=== PATIENT | male | born 1970 | race Caucasian/White ===

== ENCOUNTER → 2019-07-05 08:06 | Outpatient (CLI) | payer OTHER ==
--- NOTE | ~2019-07-05 | ST ---
PATIENT:EDNA THOMAS MEDICAL RECORD: [id number] SEX: M LOCATION:[facility] ORDER #: ADMISSION DATE: 07/05/19 AGE OF PATIENT: 49 REFERRING PHYSICIAN: INTERPRETING PHYSICIAN: GREG PARIKH MD DATE OF SERVICE: 07/05/2019 PROCEDURE: Nuclear stress test. INDICATION: Angina, shortness of breath, hypertension. TECHNIQUE: He was exercised on standard Mac protocol for 8 minutes and 45 seconds achieving 85% max target heart rate response with 33 mCi of sestamibi injected at peak stress, 11 mCi used previously for rest images. FINDINGS: Gated SPECT reveals a preserved ejection fraction at 64% with good wall motioning and thickening and brightening throughout all segments. SPECT imaging Cardiolite was used myocardial perfusion agent. There is reversible ischemia inferiorly, anteriorly and apically. This includes the basal, mid, apical anterior segments; basal, mid, apical inferior segments as well as the apex itself. The degree if reversibility is mild. The amount of myocardium involved is large. OVERALL IMPRESSION: This is a high risk abnormal nuclear stress test. Reversible ischemia inferiorly and anteriorly and apically suggestive of hemodynamically significant multivessel coronary artery disease. TRANSINT:[id number] Voice Confirmation ID: [id number] DOCUMENT ID: [id number] GREG PARIKH MD CC: [id number] DICTATION DATE: 07/05/19 1705 TAPE WEAVER: 07/06/19 1155 DEP CLI 07/05/19 [place] [id number] [place] [id number]
--- NOTE | ~2019-07-05 | EC ---
PATIENT:EDNA THOMAS DATE OF SERVICE: 07/05/19 SEX: M MEDICAL RECORD: [id number] DATE OF : 66 LOCATION:[facility] AGE OF PATIENT: 49 ADMISSION DATE: 07/05/19 REFERRING PHYSICIAN: INTERPRETING PHYSICIAN: GREG LEZAMA MD ECHOCARDIOGRAM REPORT ECHO CHARGES 4 ECHO COMPLETE Date: 07/05/19 CLINICAL DIAGNOSIS: HTN/ANGINA/DYSPNEA ON EXERTION ECHOCARDIOGRAPHIC MEASUREMENTS (adult normal given) AC root (d.<3.7cm) 3.1 cm LV Septum d (<1.2 cm> 1.6 cm Valve Excursion 1.8 cm LV Septum (systole) 1.6 cm Left Atria (s.<4.0cm> 3.9 cm LVPW d(<1.2cm) 1.6 cm RV (d.<2.3cm) 3.7 cm LVPW (sytole) 2.1 cm LV diastole(<5.6CM) 5.1 cm MV E-F(>70mm/sec) cm LV systole 2.9 cm LVOT Diameter 2.0 cm MV exc.(>10mm) 1.5 cm Est.ejection fraction (50-75%) % DOPPLER: LVIT cm/sec A 46.0 cm/sec E 70.0 cm/sec LA cm/sec RVSP 18 mmHg LVOT 88 cm/sec AOP1/2T m/s Asc. Ao 112 cm/sec RVOT 89 cm/sec RA cm/sec PA 172 cm/sec AV Gradient Peak 5.01 mmHg AV Mean 2.83 mmHg AV Area 2.1 cm MV Gradient Peak 2.57 mmHg MV Mean 0.70 mmHg MV Area cm COMMENTS: Tool Room Machinist: Kellen CASSIDY Medical Office Scheduler: 1 Dr. Lezama TAPE# PACS Pericardial Effusion N DATE OF SERVICE: ECHOCARDIOGRAM FINDINGS: 1. Left ventricular chamber size is within normal limits. Left ventricular systolic function is normal at 65%. 2. Left atrium is within normal limits. Right atrium and right ventricular chamber sizes are mildly dilated. 3. Valvular structures have normal structure and motion. ECHOCARDIOGRAM REPORT [id number] EDNA THOMAS 4. Doppler interrogation reveals mild mitral regurgitation, trace tricuspid regurgitation, no other valvular insufficiency or stenosis. Pulmonary systolic pressure is normal estimated at 18 mmHg. 5. No evidence of pericardial effusion or left ventricular thrombus. TRANSINT:[id number] Voice Confirmation ID: [id number] DOCUMENT ID: [id number] GREG LEZAMA MD CC: [id number] DICTATION DATE: 07/05/19 1054 SHOTBLAST EQUIPMENT OPERATOR: 07/05/19 1352 [facility] [address] [place] [id number]
== END | disposition home or self-care (01) ==
LOC: D.HCCECHO 08:06
PROVIDERS: ATTEND Internal Medicine Interventional Cardiology
DX: I20.9 Angina pectoris, unspecified (principal); I10 Essential (primary) hypertension